=== PATIENT | male | born 1980 | race Caucasian/White ===

== ENCOUNTER 2018-02-25 21:44 | Observation (INO) | payer OTHER ==
[2018-02-25] MEDS ORDERED: MORPHINE SULFATE INJ 10 MG/ML VIAL IV ONE ×2 (21:57→22:53)
[2018-02-25] MEDS ORDERED: methylPREDNISolone SODIUM SUC 125 MG/2 ML VIAL IV ONE (21:57)
[2018-02-25] MEDS ORDERED: SODIUM CHLORIDE 0.9% 1000ML 1,000 ML IVS ONE (21:58)
--- NOTE | 2018-02-25 22:28 | RAD ---
EXAM DESCRIPTION: Chest,1 View CLINICAL HISTORY:37 years Male, snake bite Comparison: None FINDINGS: No focal lung consolidation. No pleural effusion. No pneumothorax. Cardiac and mediastinal silhouette is unremarkable. No acute osseous abnormality. Soft tissues are unremarkable. IMPRESSION: No acute findings. No focal lung consolidation. Electronically signed by: Jerrell Dan MD 02/25/2018 10:27 PM CDT
[2018-02-26] MEDS ORDERED: MORPHINE SULFATE INJ 10 MG/ML VIAL IV ONE ×4 (00:02→04:21)
[2018-02-26] MEDS ORDERED: TETANUS,DIPHTHERIA,PERTUSSIS 1 EA SYG IM ONE (03:11)
[2018-02-26] MEDS ORDERED: SULFA/TRIMETH 800/160 (DS) TAB 1 EA TAB PO ONE (03:11)
--- NOTE | 2018-02-26 03:15 | ED.PDOC ---
History of Present Illness - General Chief Complaint: Bite: Animal/Insect/Human Stated Complaint: copperhead snake bite Time Seen by Provider: 02/25/18 21:57 Source: patient Exam Limitations: no limitations - History of Present Illness Initial Comments: the patient is a 37-year-old male presenting to the emergency room secondary to a copperhead bite to the left lateral foot approximately one half hour prior to arrival. There is mild blanching around the bite site. There are 2 puncture holes approximately three-quarter inch above the sole of the foot laterally and posteriorly towards the heel. Wound is cleaned with alcohol. The patient does have some significant pain. Area of swelling in blanching or marked upon arrival. The patient took a picture of the snake and it is definitely a copperhead. No history of any previous night bites. He is a type I diabetic and did have some significant hyperglycemia a few hours before the snake bite due to a difficulty with his basal insulin pump.he is in severe pain at the site of the bite initially upon arrival. Timing/Duration: 1/2 hour Severity: moderate Improving Factors: nothing Worsening Factors: nothing Associated Symptoms: denies symptoms Allergies/Adverse Reactions: Allergies NO KNOWN ALLERGY Allergy (Verified 02/25/18 22:03) Home Medications: Ambulatory Orders Cholecalciferol [Vitamin D] 1 tablet PO DAILY 02/25/18 Cyanocobalamin [B12] 1,000 mcg PO DAILY 02/25/18 Insulin Lispro (Human) [Humalog] 02/25/18 Levothyroxine Sodium [Synthroid] 200 mcg PO DAILY 02/25/18 Lisdexamfetamine Dimesylate [Vyvanse] 10 mg PO DAILY 02/25/18 Review of Systems - Review of Systems Constitutional: States: diaphoresis EENTM: States: no symptoms reported Respiratory: States: no symptoms reported Cardiology: States: no symptoms reported Gastrointestinal/Abdominal: States: no symptoms reported Genitourinary: States: no symptoms reported Musculoskeletal: States: see HPI Skin: States: see HPI Neurological: States: no symptoms reported Endocrine: States: no symptoms reported All other Systems: No Change from Baseline Past Medical History (General) - Patient Medical History Hx Thyroid Disease: Yes Hx Diabetes: Yes Surgical History: tonsillectomy - Vaccination History Hx Tetanus, Diphtheria Vaccination: Yes Hx Influenza Vaccination: No - Social History Hx Tobacco Use: No Hx Alcohol Use: Yes - occ Family Medical History - Family History Mother Family History: Unknown Living Status: Still Living Physical Exam - Physical Exam General Appearance: Alert, Obvious distress, Other - the patient is diaphoretic and obviously in a lot of pain Eye Exam: bilateral normal Ears, Nose, Throat: hearing grossly normal, normal ENT inspection, normal pharynx Neck: full range of motion, supple Respiratory: lungs clear, normal breath sounds, no respiratory distress, no accessory muscle use Cardiovascular/Chest: normal peripheral pulses, tachycardia - mild sinus tachycardia Peripheral Pulses: radial,right: 2+, radial,left: 2+, dorsalis pedis,right: 2+, dorsalis pedis,left: 2+, posterior tibialis,right: 2+, posterior tibialis,left: 2+ Gastrointestinal/Abdominal: non tender, soft Rectal Exam: deferred Back Exam: no CVA tenderness, no vertebral tenderness Extremity: normal range of motion, no calf tenderness, normal capillary refill, swelling - very mild swelling initially to the lateral left foot. Puncture sites are noted. Mild blanching around the puncture sites. 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 nml as tested, no motor/sensory deficits, alert, normal mood/affect, oriented x 3 Skin Exam: normal color - see above Comments: Vital Signs - 24 hr 02/25/18 02/25/18 02/25/18 21:52 21:59 22:05 Temperature 98.5 F 98.5 F Pulse Rate 91 H Pulse Rate [ 98 H 100 H 101 H right] Respiratory 22 22 Rate Blood Pressure 136/101 135/89 [right] O2 Sat by Pulse 98 97 Oximetry 02/25/18 02/25/18 02/25/18 22:15 22:31 22:48 Temperature Pulse Rate 82 76 Pulse Rate [ 91 H 81 74 right] Respiratory 22 22 22 Rate Blood Pressure 129/81 127/94 139/93 [right] O2 Sat by Pulse 96 97 98 Oximetry 02/25/18 02/25/18 02/25/18 23:05 23:15 23:30 Temperature Pulse Rate 80 80 80 Pulse Rate [ 80 77 83 right] Respiratory 22 22 22 Rate Blood Pressure 137/88 145/83 137/97 [right] O2 Sat by Pulse 98 97 98 Oximetry 02/25/18 02/26/18 02/26/18 23:45 00:00 00:15 Temperature 97.8 F Pulse Rate 80 82 82 Pulse Rate [ 83 81 90 right] Respiratory 22 20 20 Rate Blood Pressure 146/84 135/85 143/84 [right] O2 Sat by Pulse 98 97 96 Oximetry 02/26/18 02/26/18 00:58 02:01 Temperature 98 F Pulse Rate 77 84 Pulse Rate [ 77 94 H right] Respiratory 20 20 Rate Blood Pressure 128/77 129/86 [right] O2 Sat by Pulse 97 96 Oximetry Progress - Progress Progress: 02/26/18 03:20 the patient's a 37-year-old male presenting to the emergency room secondary to a copperhead bite to his left lateral foot. The patient has been monitored approximately 6 hours at this point. His vital signs have remained stable. His blood sugars have largely corrected. He has received 1 L of IV fluids and 1 dose of IV steroids. He is currently receiving a tetanus shot and a dose of Bactrim. He has not required any antibiotic and at this point. There is no evidence of any change in his liver function or significant change in his platelets. He will need to have his blood sugars monitored every 2 hours. He'll need to have another set of cardiac enzymes, d-dimer, fibrinogen level and coags in the morning. These are currently a send out from our lab with a short turnaround time due to difficulties with the lab. So far no overt evidence of any coagulopathy. No evidence of any anaphylaxis at this time. Swelling is fairly minimal at this point. Certainly no evidence of any compartment syndrome or need for orthopedic intervention on this patient seems likely in the future. Admit for continued monitoring. Admit for continued pain control. Pain seems to be well-controlled at this point as the patient is sleeping. - Results/Orders Results/Orders: single view chest x-ray is clear at this time. 02/25/18 22:00 EKG STAT normal sinus rhythm. Rate is 97 bpm. Very mild right axis deviation. Mild poor R-wave progression in anterior leads. No acute ST segment changes concerning for ischemia. Normal corrected QT interval. Laboratory Results - last 24 hr 02/25/18 02/25/18 02/25/18 21:55 22:07 22:07 WBC 5.8 RBC 4.79 Hgb 14.6 Hct 42.6 MCV 88.8 MCH 30.4 MCHC 34.3 RDW 13.3 Plt Count 352 MPV 7.2 L Absolute Neuts (auto) 2.60 Absolute Lymphs (auto) 2.40 Absolute Monos (auto) 0.40 Absolute Eos (auto) 0.30 Absolute Basos (auto) 0.10 Neutrophils % 45.8 Lymphocytes % 41.3 Monocytes % 7.2 Eosinophils % 4.5 Basophils % 1.2 PT D-Dimer, Quantitative Sodium 136 Potassium 3.7 Chloride 103 Carbon Dioxide 24 Anion Gap 12.7 BUN 15 Creatinine 1.17 BUN/Creatinine Ratio 12.8 POC Glucose 279 H Random Glucose 302 H Serum Osmolality 284.1 Calcium 9.5 Total Bilirubin 1.0 AST 20 ALT 19 Alkaline Phosphatase 75 Creatine Kinase 324 H* CK-MB (CK-2) 1.5 Troponin I < 0.02 Serum Total Protein 6.9 Albumin 4.3 Globulin 2.6 Albumin/Globulin Ratio 1.7 02/25/18 02/25/18 02/25/18 22:07 22:07 22:54 WBC RBC Hgb Hct MCV MCH MCHC RDW Plt Count MPV Absolute Neuts (auto) Absolute Lymphs (auto) Absolute Monos (auto) Absolute Eos (auto) Absolute Basos (auto) Neutrophils % Lymphocytes % Monocytes % Eosinophils % Basophils % PT D-Dimer, Quantitative Sodium Potassium Chloride Carbon Dioxide Anion Gap BUN Creatinine BUN/Creatinine Ratio POC Glucose 242 H Random Glucose Serum Osmolality Calcium Total Bilirubin AST ALT Alkaline Phosphatase Creatine Kinase CK-MB (CK-2) Troponin I Serum Total Protein Albumin Globulin Albumin/Globulin Ratio 02/26/18 02/26/18 01:48 01:48 WBC 6.4 RBC 4.85 Hgb 14.9 Hct 43.2 MCV 89.0 MCH 30.6 MCHC 34.4 RDW 13.3 Plt Count 335 MPV 7.1 L Absolute Neuts (auto) 5.70 Absolute Lymphs (auto) 0.60 L Absolute Monos (auto) 0.10 L Absolute Eos (auto) 0.00 Absolute Basos (auto) 0.00 Neutrophils % 89.2 H Lymphocytes % 8.9 L Monocytes % 1.2 L Eosinophils % 0.2 L Basophils % 0.5 PT D-Dimer, Quantitative Sodium 140 Potassium 4.0 Chloride 108 Carbon Dioxide 26 Anion Gap 10.0 L BUN 13 Creatinine 0.98 BUN/Creatinine Ratio 13.3 POC Glucose Random Glucose 161 H D Serum Osmolality 283.0 Calcium 9.3 Total Bilirubin 0.7 AST 16 ALT 19 Alkaline Phosphatase 69 Creatine Kinase CK-MB (CK-2) Troponin I Serum Total Protein 6.9 Albumin 4.2 Globulin 2.7 Albumin/Globulin Ratio 1.6 Departure - Departure Clinical Impression: Snake bite poisoning Qualifiers: Encounter type: initial encounter Injury intent: accidental or unintentional Qualified Code(s): T63.001A - Toxic effect of unspecified snake venom, accidental (unintentional), initial encounter Diabetes type 1, uncontrolled Qualifiers: Diabetes mellitus complication status: with unspecified complications Qualified Code(s): E10.8 - Type 1 diabetes mellitus with unspecified complications; E10.65 - Type 1 diabetes mellitus with hyperglycemia Disposition: Admit Patient Referrals: Rehan Stack III, MD [Primary Care Provider] - 1-2 Weeks Home Medications: Ambulatory Orders Cholecalciferol [Vitamin D] 1 tablet PO DAILY 02/25/18 Cyanocobalamin [B12] 1,000 mcg PO DAILY 02/25/18 Insulin Lispro (Human) [Humalog] 02/25/18 Levothyroxine Sodium [Synthroid] 200 mcg PO DAILY 02/25/18 Lisdexamfetamine Dimesylate [Vyvanse] 10 mg PO DAILY 02/25/18 Decision To Admit - Decistion To Admit Decision to Admit Reason: Medical Nature Decision to Admit Date: 02/26/18 Decision to Admit Time: 03:26
--- NOTE | 2018-02-26 03:30 | HP ---
SUPERVISING PHYSICIAN: Chris Torres MD CHIEF COMPLAINT: Snake bite. HISTORY OF PRESENT ILLNESS: This is a 37-year-old male patient who presented to the Emergency Room secondary to a copperhead bite to the left lateral foot. It happened just 15 to 20 minutes before his arrival to the Emergency Room. There were two puncture holes on the left lateral portion of his foot. The wound was cleaned in the Emergency Room. He did have significant pain and there was some swelling of the area on his arrival. It was marked. The patient showed a picture of the snake and it was definitely a copperhead. He is a type 1 diabetic. He has a pump in place. He sees Dr. Stack. Lab in the Emergency Room showed a normal white count of 5.8, hemoglobin 14.6, hematocrit 42.6. His subsequent hemoglobin 4 hours later was 14.9 and hematocrit 43.2. PT was 10.1, INR 1, PTT 20.4, fibrinogen 247. AM PT was 10.4 with INR 1.04, PTT 22.3, fibrinogen 258. Electrolytes were within normal limits, but his glucose has been running between 161 and 307. Creatinine kinase was 324. He was given morphine for pain in the Emergency Room as well as a tetanus. He was given 1 liter of fluids, some Bactrim and 125 mg of Solu-Medrol. He was placed in observation in the hospital. PAST MEDICAL HISTORY: 1. Type 1 diabetes, diagnosed at age 14. 2. Hypothyroidism. 3. Generalized anxiety disorder. 4. Attention deficit hyperactivity disorder. 5. Hyperlipidemia. PAST SURGICAL HISTORY: 1. Tonsillectomy/adenoidectomy as a small child. OUTPATIENT MEDICATIONS: 1. Vitamin D3. 2. Cyanocobalamin. 3. Humalog insulin. 4. Xanax. 5. Vyvanse. 6. Synthroid. ALLERGIES: NO KNOWN DRUG ALLERGIES. 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 He is . He has never smoked tobacco. He drinks alcohol on a social basis only. He denies any illicit drug use. REVIEW OF SYSTEMS: GENERAL: Negative for fever, fatigue or weight changes. HEENT: Negative for sinus symptoms, ear pain, vision changes or sore throat. RESPIRATORY: Negative for wheezing, coughing or shortness of breath. CARDIAC: Negative for chest pain, palpitations or tachycardia. GASTROINTESTINAL: Negative for nausea, vomiting, diarrhea, constipation. GENITOURINARY: Negative for hematuria, dysuria or polyuria. MUSCULOSKELETAL: As per history of present illness. SKIN: As per history of present illness. NEUROLOGIC: Negative for headache, dizziness or seizures. HEMATOLOGIC: Denies bruising or excessive bleeding. PHYSICAL EXAMINATION: VITAL SIGNS: Afebrile. Heart rate 84. Blood pressure 118/69. Respiratory rate 16. O2 saturation 97% on room air. GENERAL: This is a 37-year-old male patient who is lying in his hospital bed. He is in no acute distress. HEENT: Normocephalic, atraumatic. Pupils are equal and reactive. Oropharynx is clear. NECK: Supple without mass. RESPIRATORY: Essentially clear to auscultation bilaterally. CHEST: There is equal rise and fall of the chest with inspiration and expiration. CARDIOVASCULAR: Regular rate and rhythm. GASTROINTESTINAL: Abdomen is soft, nondistended, nontender. Bowel sounds are positive. EXTREMITIES: Left lateral foot has mild edema from the puncture side that is on the left lateral side, but his bilateral pedal pulses are palpable at +2. NEUROLOGIC: Awake, alert and oriented times three. SKIN: Normal color. Normal capillary refill to the left foot. The swelling has been marked on the left lateral foot, but there is minimal erythema. It is tender to palpation around the puncture sites and up to the lateral ankle. LABORATORY: Labs and films are as per history of present illness. IMPRESSION: 1. Copperhead snake bite to the left foot. 2. Diabetes mellitus, type 1. 3. Hypothyroidism. 4. Attention deficit hyperactivity disorder. PLAN: We will place the patient in observation. We will continue doing serial hemoglobin, hematocrit, coags as well as CMP. I have consulted to Dr. Knox. We will elevate his left leg above his heart and continue his pain medications. Accuchecks have been ordered, but we will defer to the patient on his coverage as he doses his pump with each individual blood sugar. Otherwise, we will continue to monitor the patient closely and follow as needed. Anticipate discharge tomorrow. Close followup with Dr. Stack in clinic. #[id number] [facility]
[2018-02-26] MEDS ORDERED: SODIUM CHLORIDE 0.9% (FLUSH) 10 ML SYG IV PRN (05:13)
[2018-02-26] MEDS ORDERED: MORPHINE SULFATE INJ 10 MG/ML VIAL IV PRN (05:13)
[2018-02-26] MEDS ORDERED: HYDROcodone 5MG/APAP 325MG 1 EA TAB PO PRN (05:13)
[2018-02-26] MEDS ORDERED: GLUCAGON INJ 1 MG VIAL SUBCU PRN (05:13)
[2018-02-26] MEDS ORDERED: DEXTROSE 50% 25 GM/50 ML SYG IV PRN (05:13)
[2018-02-26] MEDS ORDERED: ACETAMINOPHEN 325 MG TAB PO PRN (05:13)
[2018-02-26] MEDS ORDERED: ALPRAZolam 0.5 MG TAB PO PRN (05:22)
--- NOTE | 2018-02-26 05:25 | PCM.CORE ---
Physician DVT/VTE - Contraindications Mechanical Device Contraindication: Treatment not indicated Medication Contraindication: Medical Contraindication - pit viper bite, Drug Tx Not Indicated - Nurse DVT Assessment & Total Each Risk Factor is 1 Point: Obesity (BMI >25) DVT Assessment Score: 1
[2018-02-26] MEDS ORDERED: IV SET AND CAP CHANGE INJ INJ SCH (05:30)
[2018-02-26] MEDS: INSULIN LISPRO 100 UNITS/ML PEN SUBCU SCH ×4 (08:02→21:16)
[2018-02-26] MEDS ORDERED: HYDROcodone 5MG/APAP 325MG 1 EA TAB PO ONE (08:46)
[2018-02-26] MEDS: LEVOTHYROXINE SODIUM 0.1 MG TAB PO SCH (08:54)
[2018-02-26] MEDS: LISDEXAMFETAMINE DIMESYLATE 70 MG PO SCH (08:55)
[2018-02-26] MEDS: HYDROcodone 10MG/APAP 325MG 1 EA TAB PO PRN ×3 (13:10→22:25)
--- NOTE | 2018-02-26 13:56 | CONS ---
DATE OF CONSULTATION: 02/26/18 HISTORY OF PRESENT ILLNESS: The patient is a 37-year-old male who received a painful bite from a copperhead on his left lateral foot last night with immediate pain. He was observed in the Emergency Room for some time and did not receive any antivenom. His lab has been essentially within normal limits other than his blood sugars and he is a type 1 diabetic who has been recently placed on a pump. PAST MEDICAL HISTORY: 1. Attention deficit hyperactivity disorder. 2. Type 1 diabetes. 3. Hypothyroidism. PAST SURGICAL HISTORY: 1. Tonsillectomy and adenoidectomy. CURRENT MEDICATIONS: 1. Cholecalciferol. 2. B12. 3. Insulin. 4. Synthroid. 5. Vyvanse. ALLERGIES: NO KNOWN DRUG ALLERGIES. 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 He does not use tobacco and drinks rarely. FAMILY HISTORY: Noncontributory. REVIEW OF SYSTEMS: Currently, the patient is relatively comfortable and wanting to know when he can go home. He is requiring some pain medication and his blood sugars as noted are abnormal on past review of systems and no shortness of breath or chest pain. Currently, he has no urinary tract symptoms , no nausea or vomiting. He is tolerating a diet. He has had no change in his bowel habits, no blood per rectum. He currently has no history of significant orthopedic problems. PHYSICAL EXAMINATION: GENERAL: The patient is awake, alert, cooperative, in minimal distress. HEENT: Sclerae nonicteric. Mucous membranes moist. HEART: Regular rate and rhythm. ABDOMEN: Soft and benign. Left groin reveals no adenopathy. EXTREMITIES: The left lower extremity reveals no calf tenderness. There is no significant area of ecchymosis. The blanching has resolved somewhat. The two puncture wounds are noted on the lateral aspect of the proximal midfoot. There is no surrounding erythema, no drainage. LABORATORY: White count initially 5.8. Almost four hours later, it was 6.4 with 89% neutrophils. Hemoglobin has been steady from 14.6 to 15.1. Platelet count is essentially unchanged between 350 and 330. Coag studies have been normal. Last fibrinogen is 265. PT/INR within normal limits. Chemistries are within normal limits other than his blood sugars. His last creatinine 1.06, potassium 4.2. Liver functions are within normal limits. His initial CK was 324 and the second one is pending. ASSESSMENT: 1. Venomous snake from a copperhead to the left foot. PLAN: Continued elevation and support. Begin ambulation and see how the patient tolerates this with as much elevation as needed to resolve any edema. #[id number] [facility]
[2018-02-26] MEDS ORDERED: SODIUM CHLORIDE 0.9% 1000ML 1,000 ML IVS ONE (16:43)
[2018-02-27 02:15] VITALS: O2SAT 98
[2018-02-27] MEDS: HYDROcodone 10MG/APAP 325MG 1 EA TAB PO PRN ×2 (05:39→09:51)
[2018-02-27 05:45] VITALS: TEMP 98.3
[2018-02-27] MEDS: LEVOTHYROXINE SODIUM 0.1 MG TAB PO SCH (05:59)
[2018-02-27] MEDS: INSULIN LISPRO 100 UNITS/ML PEN SUBCU SCH (07:30)
[2018-02-27] MEDS: LISDEXAMFETAMINE DIMESYLATE 70 MG PO SCH (09:00)
--- NOTE | 2018-02-27 11:07 | DS ---
SUPERVISING PHYSICIAN: Chris Torres MD DISCHARGE DIAGNOSIS: 1. Copperhead snake bite to the left foot. 2. Diabetes mellitus, type 1. 3. Hypothyroidism. 4. Attention deficit hyperactivity disorder. HISTORY OF PRESENT ILLNESS: This is a 37-year-old male patient who presented to the Emergency Room secondary to a copperhead snake bite to the left lateral foot. It happened approximately 15 to 20 minutes before his arrival to the Emergency Room. There were two puncture holes on the left lateral portion of his left foot. The wound was cleaned in the Emergency Room. He did have significant pain and there was some swelling of the area on his arrival. It was marked progressively during his stay. The patient took a picture of the snake and it was definitely a copperhead. He is also a type 1 diabetic and has an insulin pump in place. He sees Dr. Stack. Lab in the Emergency Room showed a normal white count of 5.8, hemoglobin 14.6, hematocrit 42.6. His subsequent hemoglobin and hematocrit 4 hours later were 14.9 and 43.2. PT was 10.1, INR 1 , PTT 20.4, fibrinogen 247. AM PT was 10.4 with INR 1.04, PTT 22.3, fibrinogen 258. Electrolytes were within normal limits. His glucoses initially were running between 161 and 307. Creatinine kinase was 324. He was given morphine for pain in the Emergency Room as well as a tetanus injection. He was given 1 liter of fluids, some Bactrim and 125 mg of Solu-Medrol. He was placed admitted on the Floor and placed in observation. HOSPITAL COURSE: The patient was placed in observation on the Medical/Surgical Floor. His foot, ankle and calf were measured every 4 hours with very little swelling noted. The redness initially on the lateral portion of his left foot was very minimal, but he did have quite a bit of pain. There was some mild bruising noted at the puncture site that has since improved. His blood sugars were quire erratic initially and may be due to the steroid as well as the snake bite, but he did most of his blood sugars with his machine in his room and they got as high as 400. His nurse, Conchita Bejarano, and he did multiple adjustments on his pump. Yesterday, his blood sugars reached as high as the mid -400s. He was given an extra liter of fluids and he gave himself several additional boluses with his insulin pump. This morning, his blood sugar was 88. Overnight, blood sugars were 164, 194 and 183. He did say he had a new pump and I am not quite sure he is dosing himself properly although his elevated blood sugars could be from his injury as well as the steroid injection. Today, his sodium is 139, potassium 3.5, chloride 103, BUN 14, creatinine 1.12, magnesium 1.9. Creatinine kinase initially was 324, today it is 235. His PT is 10.3, INR 1, PTT 22.1, fibrinogen is 246. Hemoglobin and hematocrit got as low as 13.9 and 41.2. Today, they are 14.6 and 42.7. He will be discharged home today in stable condition. DISCHARGE PLAN: The patient will be discharged home in stable condition. He is to elevated his left leg as much as possible. He is to resume his home medications and his previous activity as tolerated. He is to followup with Dr. Stack on 03/04/18 at 9:15. I called Dr. Stack' office and he will give him a prescription for [place] for pain relief. He is to return to the hospital or call Dr. Stack' office for any further problems or complications. DISCHARGE MEDICATIONS: 1. Cyanocobalamin. 2. Synthroid. 3. Humalog. 4. Vitamin D3. 5. Vyvanse. 6. Alprazolam. 7. Hydrocodone. #[id number] [facility]
[2018-02-27 12:02] VITALS: BP 114/75
== END 2018-02-27 12:10 | disposition home or self-care (01) ==
LOC: ER 21:44 → MS 02-26 03:29
PROVIDERS: ADMIT Nurse Practitioner Acute Care; ATTEND Nurse Practitioner Acute Care
DX: T63.061A Toxic effect of venom of other North and South American snake, accidental (unintentional), initial encounter (principal); E10.65 Type 1 diabetes mellitus with hyperglycemia; E03.9 Hypothyroidism, unspecified; F90.9 Attention-deficit hyperactivity disorder, unspecified type; E78.5 Hyperlipidemia, unspecified; F41.1 Generalized anxiety disorder; Z96.41 Presence of insulin pump (external) (internal); Z79.4 Long term (current) use of insulin; Z79.899 Other long term (current) drug therapy; Z23 Encounter for immunization; Y92.009 Unspecified place in unspecified non-institutional (private) residence as the place of occurrence of the external cause
CPT/HCPCS: 90471; 96372; 96376 ×3; J2930; J2270 ×6; J7030 ×2; 90715; 85379; 82553; 80053 ×4; 82948 ×8; 85014 ×5; 85018 ×5; 36415 ×10; 85384 ×7; 85025 ×3; 82550 ×3; 83735; 85730 ×3; 85049 ×4; 85610 ×7; 84484; 36416 ×6; 71045; 94760 ×4; 99285; 93005; G0378; 96361; 96374; 96375

== ENCOUNTER → 2018-07-17 | Outpatient (CLI) | payer OTHER | LOC: GMAL 11:17 | PROVIDERS: ATTEND Family Medicine | DX: D51.0 Vitamin B12 deficiency anemia due to intrinsic factor deficiency (principal); E55.9 Vitamin D deficiency, unspecified ==

== ENCOUNTER → 2019-07-07 | Outpatient (CLI) | payer OTHER | LOC: GMAL 12:34 | PROVIDERS: ATTEND Family Medicine | DX: E03.9 Hypothyroidism, unspecified (principal); E10.9 Type 1 diabetes mellitus without complications; E78.2 Mixed hyperlipidemia; Z79.899 Other long term (current) drug therapy ==

== ENCOUNTER → 2020-01-17 | Outpatient (CLI) | payer OTHER | LOC: GMAL 15:18 | PROVIDERS: ATTEND Family Medicine | DX: M79.671 Pain in right foot (principal) ==

== ENCOUNTER → 2020-04-26 | Outpatient (CLI) | payer OTHER | LOC: GMAL 14:38 | PROVIDERS: ATTEND Family Medicine | DX: D51.0 Vitamin B12 deficiency anemia due to intrinsic factor deficiency (principal); E03.9 Hypothyroidism, unspecified; E10.9 Type 1 diabetes mellitus without complications; E78.2 Mixed hyperlipidemia; E55.9 Vitamin D deficiency, unspecified; Z79.899 Other long term (current) drug therapy ==